=== PATIENT | female | born 1990 | race Caucasian/White ===

== ENCOUNTER 2017-02-02 05:24 | Emergency (ER) | payer BC ==
[2017-02-02] MEDS ORDERED: Ibuprofen TAB* 400 MG PO ONE (06:19)
[2017-02-02] MEDS ORDERED: Ibuprofen TAB* 400 MG ONE (06:40)
[2017-02-02 08:31] VITALS: BP 118/54
--- NOTE | 2017-02-02 09:52 | RAD ---
Indication: Left wrist pain. 3 views of the wrist demonstrates no fracture. No other bone or joint abnormality is identified. IMPRESSION: NO FRACTURE OF THE WRIST IS NOTED.
--- NOTE | 2017-02-02 10:13 | ED ---
Telma Bradley Abhishek, scribed for Antonio Jackson MD on 02/02/17 at 0746 . Upper Extremity Pain - HPI Summary HPI Summary: This patient is a 26 year old F presenting to [facility] with a chief complaint of Left wrist pain since few days ago. Patient states onset of injury may have been while playing volleyball approximately 2 weeks ago. Couple of days (onset) . Last two days pain started but injured 2 week ago. Wrist pain is described as constant. The patient rates the pain 6/10 in severity. Symptoms aggravated by nothing. Symptoms alleviated by nothing. Patient reports edema on her left hand in the middle by her fingers, tingling in her fingers and ingrown toenail. Patient denies fevers, seats, and chills. Patient takes ibuprofen every 4 hours. - History of Current Complaint Chief Complaint: EDExtremityUpper Stated Complaint: LT WRIST PAIN, LEFT TOE INJURY Time Seen by Provider: 02/02/17 06:14 Hx Obtained From: Patient Mechanism Of Injury: Other - Playing Vollyball Onset/Duration: Started Days Ago - two days ago Timing: Constant Severity Initially: Moderate Severity Currently: Moderate Pain Location: Wrist - Left wrist Aggravating Factor(s): Nothing Alleviating Factor(s): Nothing Associated Signs & Symptoms: Positive: Swelling - middle two fingers, Numbness/ Tingling - Fingers - Allergies/Home Medications Allergies/Adverse Reactions: Allergies Allergy/AdvReac Type Severity Reaction Status Date / Time Morphine Allergy Severe Swelling Verified 11/26/15 14:03 Amoxicillin Allergy Intermediate HIVES AND Verified 11/26/15 14:03 SWELLING Penicillins Allergy Intermediate HIVES AND Verified 11/26/15 14:03 SWELLING Latex Allergy Mild Rash Verified 11/26/15 14:03 environmental Allergy sinuses Uncoded 03/10/13 20:43 PMH/Surg Hx/FS Hx/Imm Hx Endocrine/Hematology History: Reports: Hx Anemia Denies: Hx Diabetes, Hx Thyroid Disease Cardiovascular History: Reports: Hx Deep Vein Thrombosis, Other Cardiovascular Problems/Disorders - LEFT KNEE- BLOOD-08/2008- Denies: Hx Hypercholesterolemia, Hx Hypertension, Hx Pacemaker/ICD, Hx Peripheral Vascular Disease Respiratory History: Denies: Hx Asthma, Hx Chronic Obstructive Pulmonary Disease (COPD) GI History: Denies: Hx Ulcer History: Denies: Hx Kidney Stones Musculoskeletal History: Denies: Hx Arthritis, Hx Rheumatoid Arthritis, Hx Osteoporosis Sensory History: Denies: Hx Cataracts, Hx Contacts or Glasses, Hx Glaucoma, Hx Hearing Aid Opthamlomology History: Denies: Hx Cataracts, Hx Contacts or Glasses, Hx Glaucoma Neurological History: Denies: Hx Headaches, Hx Seizures, Hx Transient Ischemic Attacks (TIA) Psychiatric History: Denies: Hx Anxiety, Hx Depression, Hx Panic Disorder - Surgical History Surgery Procedure, Year, and Place: LEFT KNEE ACL & MENISCUS-2007. BLOOD CLOT IN KNEE (LEFT)-2008. TUBES IN EAR. T&A. LEFT THUMB SURGERY 2013 Hx Anesthesia Reactions: Yes - NAUSEA Infectious Disease History: No Infectious Disease History: Denies: Hx Hepatitis, Hx Human Immunodeficiency Virus (HIV), Traveled Outside the [place] in Last 30 Days - Family History Known Family History: Positive: Hypertension, Other - rheumatoid arthritis, cancer. Mother may have had an ovarian cyst. 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 Negative: Fever, Chills, Skin Diaphoresis Eyes: Negative ENT: Negative Cardiovascular: Negative Respiratory: Negative Gastrointestinal: Negative Genitourinary: Negative Positive: Edema - middle of the left hand at the fingers, Other - Left wrist pain Skin: Negative Neurological: Other - tingling at the fingers on the left hand Psychological: Normal All Other Systems Reviewed And Are Negative: Yes Physical Exam - Summary Physical Exam Summary: Constitutional: Well-developed, Well-nourished, Alert. (-) Distressed Skin: Warm, Dry HENT: Normocephalic; Atraumatic Eyes: Conjunctiva normal Neck: Musculoskeletal ROM normal neck. (-) JVD, (-) Stridor, (-) Tracheal deviation Cardio: Rhythm regular, rate normal, Heart sounds normal; Intact distal pulses; The pedal pulses are 2+ and symmetric. Radial pulses are 2+ and symmetric. (-) Murmur Pulmonary/Chest wall: Effort normal. (-) Respiratory distress, (-) Wheezes, (-) Rales Abd: Soft, (-) Tenderness, (-) Distension, (-) Guarding, (-) Rebound Musculoskeletal: Positive tinels sign in the left hand, No real bony tenderness , No swelling no redness, Full range of motion, T Rail Turner strength equal bilaterally , No thenar wasting, and no snuff box tenderness Left Foot exam: Normal, Skin is intact, No redness or swelling, Lymph: (-) Cervical adenopathy Neuro: Alert, Oriented x3 Psych: Mood and affect Normal Triage Information Reviewed: Yes Vital Signs On Initial Exam: Initial Vitals Temp Pulse Resp BP Pulse Ox 98.4 F 80 18 115/52 100 02/02/17 05:26 02/02/17 05:26 02/02/17 05:26 02/02/17 05:26 02/02/17 05:26 Vital Signs Reviewed: Yes - [place] Coma Scale Coma Scale Total: 15 Diagnostics - Vital Signs Vital Signs Temp Pulse Resp BP Pulse Ox 02/02/17 05:26 98.4 F 80 18 115/52 100 - Laboratory Lab Statement: Any lab studies that have been ordered have been reviewed, and results considered in the medical decision making process. - Radiology Left wrist X-ray Radiology Interpretation Completed By: ED Physician - Left wrist X-ray reveals Left wrist x-ray reveals no acute disease ED physician has reviewed this radiology report. Course/Dx - Course Course Of Treatment: This patient is a 26 year old F presenting to [facility] with a chief complaint of Left wrist pain since few days ago. Patient states onset of injury may have been while playing volleyball approximately 2 weeks ago.Wrist pain is described as constant. Patient reports edema on her middle of the left hand by her fingers, tingling in her fingers and ingrown toenail. Patient denies fevers, skin diaphoresis, and chills. Wrist X-ray exam reveals no acute disease. ED physician has reviewed the radiology report. We discussed outpatient toenail modification or removal with podiatry and encouraged her to return if signs of infection develop or significant pain. We recommended Naproxen instead of ibuprofen and provided her with a wrist splint. Patient will be discharged home. The dx are wrist tendonitis, carpal tunnel syndrome, and ingrown toenail. - Diagnoses Provider Diagnoses: Wrist tendonitis, Ingrown toenail, Carpal tunnel syndrome Discharge - Discharge Plan Condition: Stable Disposition: HOME Prescriptions: Naproxen TAB* [Naprosyn 250 mg TAB*] 500 mg PO Q8H PRN #30 tab PRN Reason: Pain - Moderate To Severe traMADol TAB* [Ultram*] 25 mg PO DAILY PRN #5 tab MDD 1 PRN Reason: Pain - Moderate To Severe Patient Education Materials: Wrist Injury (ED), Ingrown Nail (ED), Tendinitis ( ED) Forms: *Work Release Referrals: Art Duron MD [Primary Care Provider] - Additional Instructions: RETURN TO THE EMERGENCY DEPARTMENT FOR CHANGING OR WORSENING SYMPTOMS. The documentation as recorded by the Telma rider Abhishek accurately reflects the service I personally performed and the decisions made by , Antonio Jackson MD.
== END 2017-02-02 08:30 | disposition home or self-care (01) ==
LOC: ED 05:24
DX: M77.9 Enthesopathy, unspecified (principal); G56.01 Carpal tunnel syndrome, right upper limb; L60.0 Ingrowing nail; Z88.3 Allergy status to other anti-infective agents; Z88.5 Allergy status to narcotic agent; Z88.0 Allergy status to penicillin
CPT/HCPCS: 99282; A9270-GY

== ENCOUNTER 2018-03-05 16:18 | Emergency (ER) | payer OTHER ==
[2018-03-05] MEDS ORDERED: Ibuprofen TAB* 400 MG PO ONE (19:38)
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
[2018-03-05] MEDS ORDERED: HYDROcodone/ACETAMIN 5-325 MG* 1 TAB PO ONE (22:38)
[2018-03-05] MEDS ORDERED: Cyclobenzaprine TAB* 10 MG PO ONE (23:12)
[2018-03-05] MEDS ORDERED: Cyclobenzaprine TAB* 10 MG ONE (23:13)
[2018-03-06 00:47] VITALS: BP 107/67
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
== END 2018-03-06 00:35 | disposition home or self-care (01) ==
LOC: ED 16:18
DX: S52.202A Unspecified fracture of shaft of left ulna, initial encounter for closed fracture (principal); S50.10XA Contusion of unspecified forearm, initial encounter; R07.9 Chest pain, unspecified; M54.2 Cervicalgia; M25.562 Pain in left knee; M25.532 Pain in left wrist; V49.49XA Driver injured in collision with other motor vehicles in traffic accident, initial encounter; Y92.9 Unspecified place or not applicable
CPT/HCPCS: 70450; 71046; 72125; 93005; 99282; A9270-GY

== ENCOUNTER 2018-05-08 08:34 | Emergency (ER) | payer BC, OTHER ==
[2018-05-08 09:07] VITALS: BP 113/61
--- NOTE | 2018-05-08 10:34 | UC ---
Throat Pain/Nasal Alfredo HPI - HPI Summary HPI Summary: 28 y/o female presents to the urgent care c/o sore throat, body aches, fever, RUIZ since Friday05/05/2018. Then she developed a dry cough. Pain w/ swallowing is 7/10. She has taking Dayquill and Ibuprofen PO to alleviate symptoms. Her boyfriend was recently Dx w/ the flu just now. Pt denies fever today, SOB, wheezing, abdominal pain, N/V/d. - History of Current Complaint Chief Complaint: UCGeneralIllness Stated Complaint: SORE THROAT Time Seen by Provider: 05/08/18 10:27 Hx Obtained From: Patient Hx Last Menstrual Period: 04/13/18 Onset/Duration: Gradual Onset, Lasting Days - 3 days, Still Present, Worse Since - today Severity: Moderate Pain Intensity: 7 Pain Scale Used: 0-10 Numeric Cough: Nonproductive Associated Signs & Symptoms: Positive: Dysphagia, Sinus Discomfort, Nasal Discharge - clear, Fever - at home. Negative: Wheezing - Epiglottits Risk Factors Epiglottis Risk Factors: Negative - Allergies/Home Medications Allergies/Adverse Reactions: Allergies Allergy/AdvReac Type Severity Reaction Status Date / Time amoxicillin Allergy Hives/Diff. Verified 05/08/18 08:49 Breathing/I tching latex Allergy Rash Verified 05/08/18 08:49 morphine Allergy Swelling Verified 05/08/18 08:49 Penicillins Allergy Hives/Diff. Verified 05/08/18 08:49 Breathing/I tching environmental Allergy sinuses Uncoded 05/08/18 08:49 Home Medications: Home Medications Dm/PE/Acetaminophen/Chlorphenr [Cold Multi-Symptom Daytim 5-2-10-325 mg] 1 edie PO ONCE 05/08/18 [History Confirmed 05/08/18] PMH/Surg Hx/FS Hx/Imm Hx Previously Healthy: Yes - Pt denies PMHX - Surgical History Surgical History: Yes Surgery Procedure, Year, and Place: LEFT KNEE ACL & MENISCUS-2007. BLOOD CLOT IN KNEE (LEFT)-2008. TUBES IN EAR. T&A. LEFT THUMB SURGERY 2012 - Family History Known Family History: Positive: Hypertension, Diabetes, Other - rheumatoid arthritis, cancer. Mother may have had an ovarian cyst. - Social History Occupation: Employed Full-time Lives: With Family Alcohol Use: None Substance Use Type: None Smoking Status (MU): Never Smoked Tobacco Review of Systems All Other Systems Reviewed And Are Negative: Yes Constitutional: Positive: Fever, Chills, Fatigue, Other - body aches Skin: Positive: Negative Eyes: Positive: Negative ENT: Positive: Sore Throat, Nasal Discharge - clear, Sinus Congestion Respiratory: Positive: Cough - dry Cardiovascular: Positive: Negative Gastrointestinal: Positive: Negative Genitourinary: Positive: Negative Motor: Positive: Negative Neurovascular: Positive: Negative Musculoskeletal: Positive: Myalgia Neurological: Positive: Headache Psychological: Positive: Negative Is Patient Immunocompromised?: No Physical Exam - Summary Physical Exam Summary: VITAL SIGNS: Reviewed. GENERAL: Patient is a well developed and nourished female who is sitting comfortable in the examining table. Patient is not in any acute respiratory distress. HEAD AND FACE: No signs of trauma. No ecchymosis, hematomas or skull depressions. No sinus tenderness. EYES: PERRLA, EOMI x 2, No injected conjunctiva, no nystagmus. No photophobia. EARS: Hearing grossly intact. Ear canals and tympanic membranes are within normal limits. Nose: edematous and erythematous nasal mucosa w/ clear nasal discharge. MOUTH: Positive pharyngeal erythema, no tonsillar enlargement. Uvula in midline. NECK: Supple, trachea is midline, Positive anterior cervical lymphadenopathy, no JVD, no carotid bruit, no c-spine tenderness, neck with full ROM. No meningeal signs, no Kernig's or brudzinskis signs. CHEST: Symmetric, no tenderness at palpation LUNGS: Clear to auscultation bilaterally. No wheezing or crackles. CVS: Regular rate and rhythm, S1 and S2 present, no murmurs or gallops appreciated. ABDOMEN: Soft, non-tender. No signs of distention. No rebound no guarding, and no masses palpated. Bowel sounds are normal. EXTREMITIES: FROM in all major joints, no edema, no cyanosis or clubbing. NEURO: Alert and oriented x 3. No acute neurological deficits. Speech is normal and follows commands. SKIN: Dry and warm Triage Information Reviewed: Yes Vital Signs: Initial Vital Signs Temp 97.8 F 05/08/18 08:51 Pulse 85 05/08/18 08:51 Resp 16 05/08/18 08:51 BP 113/61 05/08/18 08:51 Pulse Ox 97 05/08/18 08:51 Throat Pain/Nasal Course/Dx - Course Course Of Treatment: 28 y/o female presents to the urgent care c/o sore throat, body aches, fever, RUIZ since Friday05/05/2018. Then she developed a dry cough. Pain w/ swallowing is 7/10. She has taking Dayquill and Ibuprofen PO to alleviate symptoms. Her boyfriend was recently Dx w/ the flu just now. Pt denies fever today, SOB, wheezing, abdominal pain, N/V/d. Hx obtained. Pt with pharyngitis on examination. Rapid strep ordered, result: negative.Influenza A&B ordered: result : Influenza A positive.Pt Rx Tamiflu and ibuprofen PO to alleviates symptoms. Advised on hand washing and wear a mask to avoid spreading. Pt advised to rest, increase fluid intake, eat well and avoid strenuous exercise. Pt advised if symptoms do not improve or worsen advised to return to the urgent care or f/u with her PCP for further evaluation and treatment. D/c instructions explained. Pt understood and agreed w/ plan of care. - Differential Dx/Diagnosis Differential Diagnosis/HQI/PQRI: Influenza, Laryngitis, Mononucleosis, Pharyngitis, Sinusitis, Tonsillitis, URI Provider Diagnosis: Influenza A Discharge - Sign-Out/Discharge Documenting (check all that apply): Patient Departure - d/c home All imaging exams completed and their final reports reviewed: No Studies - Discharge Plan Condition: Stable Disposition: HOME Prescriptions: Ibuprofen TAB* [Motrin TAB* 600 MG] 600 mg PO Q6H PRN #30 tab PRN Reason: Pain Oseltamivir CAP* [Tamiflu CAP*] 75 mg PO BID #10 cap Patient Education Materials: Influenza (ED) Forms: *Work Release Referrals: Art Duron MD [Primary Care Provider] - 3 Days Additional Instructions: 1- Please take the full course of the antiviral to avoid resistance. Encourage hand washing and wear a mask to avoid spreading. 2-Please continue taking Ibuprofen PO q6-8hrs prn as instructed after meals to alleviate fever, and sore throat. Increase fluid intake, eat well, rest and avoid strenuous exercise 3-If symptoms do not improve or worsen please return to the urgent care or f/u with your PCP in 2 days for further evaluation and treatment. - Billing Disposition and Condition Condition: STABLE Disposition: Home
[2018-05-08 10:44] LABS: Influenza A Molecular POSITIVE (Negative)
== END 2018-05-08 11:04 | disposition home or self-care (01) ==
LOC: UCEAST 08:34
DX: J11.1 Influenza due to unidentified influenza virus with other respiratory manifestations (principal); Z91.040 Latex allergy status; Z88.0 Allergy status to penicillin
CPT/HCPCS: 87651; 99212; G0463